=== PATIENT | female | born 1985 | race Caucasian/White ===

== ENCOUNTER 2021-07-29 05:22 | Inpatient (IN) | payer OTHER ==
[2021-07-29] MEDS: Lactated Ringers 1,000 ML IV SCH ×2 (05:55→07:38)
[2021-07-29] MEDS ORDERED: Sodium Chloride 0.9% 2.5 ML Syringe FLUSH PRN (06:06)
[2021-07-29] MEDS ORDERED: Citric Acid/Sodium Citrate Solution 30 ML Cup PO ONE (06:06)
[2021-07-29] MEDS ORDERED: Sodium Chloride 0.9% 10 ML Syringe FLUSH PRN (06:06)
[2021-07-29] MEDS ORDERED: Sodium Chloride 0.9% 20 ML SDV IV PRN (06:06)
[2021-07-29] MEDS ORDERED: Oxytocin/0.9 % Sodium Chloride 30 UNIT/500 ML BAG IV SCH (06:15)
[2021-07-29] MEDS ORDERED: Oxytocin 10 Units/1 ML SDV ONE (07:48)
[2021-07-29] MEDS ORDERED: Ondansetron 4 MG/2 ML SDV ONE (07:48)
[2021-07-29] MEDS ORDERED: Morphine PF 10 MG/10 ML SDV ONE (07:48)
[2021-07-29] MEDS ORDERED: Dexmedetomidine 200 MCG/2 ML SDV ONE (07:48)
[2021-07-29] MEDS ORDERED: Water For Injection, Sterile 20 ML ONE (07:49)
[2021-07-29] MEDS ORDERED: ceFAZolin 1 GM Vial ONE (07:49)
[2021-07-29] MEDS ORDERED: Octyl 2-Cyanoacrylate 1 Tube ONE (08:23)
[2021-07-29] MEDS ORDERED: Ibuprofen 400 MG Tab PO PRN (09:40)
[2021-07-29] MEDS ORDERED: Benzocaine/Menthol 20%-0.5% Spray 78 GM Cannister TOP PRN (09:40)
[2021-07-29] MEDS ORDERED: Witch Hazel Medicated Pads 40/Jar TOP PRN (09:40)
[2021-07-29] MEDS ORDERED: Lanolin 100% Cream 7 GM Tube TOP PRN (09:40)
[2021-07-29] MEDS ORDERED: Bisacodyl 10 MG Supp RECTAL PRN (09:40)
[2021-07-29] MEDS ORDERED: Acetaminophen 500 MG Tab PO PRN ×2 (09:40)
[2021-07-29] MEDS ORDERED: fentaNYL 100 MCG/2 ML SDV IVPUSH PRN (09:45)
[2021-07-29] MEDS ORDERED: diphenhydrAMINE 50 MG/ML SDV IVPUSH PRN (09:45)
[2021-07-29] MEDS ORDERED: Ondansetron 4 MG/2 ML SDV IVPUSH PRN (09:45)
[2021-07-29] MEDS ORDERED: Naloxone 0.4 MG/ML SDV IVPUSH PRN (09:45)
[2021-07-29] MEDS ORDERED: ePHEDrine 50 MG/ML SDV IVPUSH PRN (09:46)
[2021-07-29] MEDS ORDERED: Nalbuphine HCl 10 MG/ 1ML Amp IVPUSH PRN (09:54)
[2021-07-29] MEDS ORDERED: Lactated Ringers 1,000 ML IV SCH (11:00)
[2021-07-29] MEDS: Ketorolac 30 MG/ML SDV IVPUSH SCH ×2 (12:12→18:25)
[2021-07-29] MEDS: Docusate Sodium 100 MG Cap PO PRN (21:06)
[2021-07-30] MEDS: Ketorolac 30 MG/ML SDV IVPUSH SCH ×3 (00:24→12:57)
[2021-07-30] MEDS: Docusate Sodium 100 MG Cap PO PRN ×2 (09:14→21:58)
[2021-07-30] MEDS: Acetaminophen/oxyCODONE 325-5 MG Tab PO PRN ×2 (09:15→18:45)
[2021-07-30] MEDS ORDERED: Ketorolac 30 MG/ML SDV ONE (12:53)
[2021-07-30] MEDS: Ibuprofen 800 MG Tab PO PRN (21:59)
[2021-07-31] MEDS: oxyCODONE 5 MG Tab PO PRN ×4 (00:25→16:05)
[2021-07-31] MEDS: Ibuprofen 800 MG Tab PO PRN ×2 (09:12→16:03)
[2021-07-31] MEDS: Docusate Sodium 100 MG Cap PO PRN (09:13)
[2021-07-31] MEDS: Acetaminophen/oxyCODONE 325-5 MG Tab PO PRN (16:04)
== END 2021-07-31 18:05 | disposition home or self-care (01) | DRG 788 ==
LOC: MW.OB 05:22 → OBSVTOIN 06:06 → MW.OB 12:05
PROVIDERS: ADMIT Obstetrics & Gynecology; ATTEND Obstetrics & Gynecology
PROC: 10D00Z1 Extraction of Products of Conception, Low, Open Approach (ICD-10-PCS; principal; 2021-07-29)
DX: O99.12 Other diseases of the blood and blood-forming organs and certain disorders involving the immune mechanism complicating childbirth (principal); Z37.0 Single live birth; O99.02 Anemia complicating childbirth; D64.9 Anemia, unspecified; Z20.822 Contact with and (suspected) exposure to COVID-19; Z3A.40 40 weeks gestation of pregnancy; O48.0 Post-term pregnancy
CPT/HCPCS: 36415; 59025; 82803; 85025; 85027; 86592; 86850; 86900; 86901; A9270-GY; J0690; J1885; J2274; J2370; J2405; J2590; J7120; U0002